=== PATIENT | female | born 1995 | race Caucasian/White ===

== ENCOUNTER → 2018-05-08 | Outpatient (CLI) | payer OTHER ==
[~2018-05-08] MED LIST: NORG1TAB97 PO; PREN-127 PO
[2018-05-08 10:00] LABS: PLATELET COUNT, AUTOMATED 269 K/uL (150-450)
== END ==
LOC: LAB 08:02
PROVIDERS: ATTEND Student in an Organized Health Care Education/Training Program
DX: Z34.01 Encounter for supervision of normal first pregnancy, first trimester (principal)
CPT/HCPCS: 36415; 81001; 85025; 86592; 86703; 86762; 86850; 86900; 86901; 87088; 87340

== ENCOUNTER → 2018-06-08 | Outpatient (CLI) | payer OTHER ==
[~2018-06-08] MED LIST changes: +FLU60SYR36 IM
== END ==
LOC: LAB 08:15
PROVIDERS: ATTEND Student in an Organized Health Care Education/Training Program
DX: Z34.91 Encounter for supervision of normal pregnancy, unspecified, first trimester (principal)
CPT/HCPCS: 87491; 87591

== ENCOUNTER → 2018-08-06 | Outpatient (CLI) | payer OTHER | LOC: LAB 10:16 | PROVIDERS: ATTEND Obstetrics & Gynecology | DX: O26.812 Pregnancy related exhaustion and fatigue, second trimester (principal) | CPT/HCPCS: 36415; 84443; 85027 ==

== ENCOUNTER → 2018-08-06 | Outpatient (CLI) | payer OTHER ==
--- NOTE | 2018-08-06 13:48 | RADIOLOGY IMAGING REPORT ---
FACILITY: [facility] PATIENT NAME: Ginna Portillo : 1995 MR: [id number] V: [id number] EXAM DATE: ORDERING PHYSICIAN: KOMAL SANCHEZ TECHNOLOGIST: [facility] Patient: Ginna Portillo : 1995 Visit/Account:[id number] Date of Sevice: 08/06/2018 EXAMINATION: Ultrasound transabdominal OB > 14 weeks with anatomic evaluation HISTORY: Anatomic survey COMPARISON: None. TECHNIQUE: Transabdominal imaging was performed for assessment of the fetus and maternal pelvic structures. T ransvaginal imaging was not performed. FINDINGS: Placenta: Anterior without previa. Uterus: Gravid, otherwise normal Cervix: Long and closed. Maternal Ovaries: Not visualized. Maternal and other adnexa findings: Not evaluated Intrauterine gestations: One. presentation: Cephalic heart rate: Normal and regular at 134 bpm Amniotic fluid index: 17.45 cm Largest amniotic fluid pocket: 5.24 cm Gestational Parameters: BPD: 4.56 cm 19 weeks/ six days, 35% HC: 17.71 cm 20 weeks/ two days, 44% AC: 14.48 cm 19 weeks/ six days, 33% FL: 3.27 cm 20 weeks/ two days, 45% Average ultrasound age (AUA): 20 weeks/one days, KISHA 12/23/2018 Estimated gestational age by KISHA: 20 weeks/one days, KISHA 12/23/2018 Estimated weight (EFW): 326 grams +/- 48 grams EFW for KISHA: 38 percentile Anatomic Survey: Intracranial structures, 4-chamber heart, stomach, kidneys, urinary bladder, spine, 3-vessel cord and cord insertion are unremarkable. Two upper and two lower extremities visualized. Cardiac ventricula r outflow tracts, palate and lips are unremarkable in appearance. IMPRESSION: Single viable fetus in cephalic presentation with an estimated gestational age by measur ements of 20 weeks and one day. Estimated gestational age by LMP is also 20 weeks and one day. Report Dictated By: Alyssa Nolan MD at 08/06/2018 1:40 PM Report E-Signed By: Alyssa Nolan MD at 08/06/2018 1:43 PM WSN:[id number]
== END ==
LOC: US 08:48
PROVIDERS: ATTEND Obstetrics & Gynecology
DX: Z02.9 Encounter for administrative examinations, unspecified (principal)

== ENCOUNTER → 2018-09-28 | Outpatient (CLI) | payer OTHER ==
[~2018-09-28] MED LIST changes: +DIPH0.5S2 IM
[2018-09-28 11:33] LABS: PLATELET COUNT, AUTOMATED 227 K/uL (150-450)
== END ==
LOC: LAB 08:19
PROVIDERS: ATTEND Student in an Organized Health Care Education/Training Program
DX: Z34.92 Encounter for supervision of normal pregnancy, unspecified, second trimester (principal)
CPT/HCPCS: 36415; 82950; 85025

== ENCOUNTER → 2018-11-26 | Outpatient (CLI) | payer OTHER | LOC: LAB 08:12 | PROVIDERS: ATTEND Student in an Organized Health Care Education/Training Program | DX: Z36.85 Encounter for antenatal screening for Streptococcus B (principal) | CPT/HCPCS: 87081 ==

== ENCOUNTER 2018-12-24 17:44 | Inpatient (IN) | payer OTHER ==
[~2018-12-24] VITALS: Ht 165.1 cm; Wt 97.5 kg
[2018-12-24] MEDS ORDERED: FAMOTIDINE(*) 20MG/50ML PREMIX 50 ML IVPB PRN (17:51)
[2018-12-24] MEDS ORDERED: TERBUTALINE SULF 1 MG/ML VIAL IVP PRN (17:55)
[2018-12-24] MEDS ORDERED: FLUSH 10 ML SYR IVP PRN (17:55)
[2018-12-24] MEDS ORDERED: DINOPROSTONE 10 MG INSERT PV ONE (17:55)
[2018-12-24] MEDS ORDERED: LIDOCAINE/SOD BICARB 8.4% SYR SC PRN (17:55)
[2018-12-24] MEDS ORDERED: METOCLOPRAMIDE 10 MG/2 ML SDV IVP PRN (17:55)
[2018-12-24] MEDS ORDERED: ZOLPIDEM TARTRATE 5 MG TAB PO PRN (17:55)
[2018-12-24] MEDS ORDERED: LIDOCAINE 1% LOCAL 300 MG/30ML INJ PRN (17:55)
[2018-12-24] MEDS ORDERED: fentaNYL CITR 100 MCG/2 ML AMP IVP PRN (17:55)
[2018-12-24 18:00] VITALS: BP 132/79; Ht 165.1 cm; Wt 97.5 kg
[2018-12-24 18:29] LABS: PLATELET COUNT, AUTOMATED 229 K/uL (150-450)
--- NOTE | 2018-12-24 18:58 | Anesthesia OB Pre-Anes Eval ---
History of Present Illness Anesthesia Start Date: Dec 24, 2018 Anesthesia Start Time: 18:47 OB Anesthesia Diagnosis: induction - medical, other (Post KISHA) Complications: none known : 1 Para: 0 Vital Signs: Epidural anesthesia risks, complications and benefits explained to patient's satisfaction for labor and vaginal delivery and/or section., Signs of infection and post dural puncture DIALLO teaching done. Hematology Test 12/24/18 18:20 White Blood Count 9.9 k/uL (4.5-11.0) Red Blood Count 4.51 M/uL (4.17-5.56) Hemoglobin 14.5 g/dL (12.0-16.0) Hematocrit 42.0 % (34.0-47.0) Mean Corpuscular Volume 93.1 fL (80.0-96.0) Mean Corpuscular Hemoglobin 32.1 pg (26.0-33.0) Mean Corpuscular Hemoglobin Concent 34.5 g/dL (32.0-36.0) Red Cell Distribution Width 14.9 % (11.5-14.5) H Platelet Count 229 K/uL (150-450) Mean Platelet Volume 9.2 fL (7.2-11.1) Neutrophils (%) (Auto) 71.4 % (39.4-72.5) Lymphocytes (%) (Auto) 20.4 % (17.6-49.6) Monocytes (%) (Auto) 7.4 % (4.1-12.4) Eosinophils (%) (Auto) 0.4 % (0.4-6.7) Basophils (%) (Auto) 0.4 % (0.3-1.4) Nucleated RBC Relative Count (auto) 0.1 /100WBC Neutrophils # (Auto) 7.1 K/uL (2.0-7.4) Lymphocytes # (Auto) 2.0 K/uL (1.3-3.6) Monocytes # (Auto) 0.7 K/uL (0.3-1.0) Eosinophils # (Auto) 0.0 K/uL (0.0-0.5) Basophils # (Auto) 0.0 K/uL (0.0-0.1) Nucleated RBC Absolute Count (auto) 0.01 K/uL Pain Ratin Heart Tones: 132 Result Diagram: 12/24/18 1820 Weight (Pounds): 155 Past Medical History Surgical History: cholecystectomy, other (wisdom teeth, rt, wrist reconstruction) Previous Anesthesia: general Attended Childbirth Classes?: No Hx Anesthesia Reactions: No Current Medications: pitocin, other (cervidil) Home Meds Reported Medications Vits W-Ca,Fe,Fa(<1MG) ( VITAMINS) 1 Each Tablet, 1 EACH PO DAILY, TAB 05/08/18 Allergies: Coded Allergies: No Known Drug Allergies (Unverified , 04/01/16) Anesthesia OB ROS Neurological: No migraines/headaches, No seizures, No neuropathy, No other Eyes ROS: other (glasses) ENT: Denies Tooth caps, Denies Loose teeth, Denies Chipped teeth, Denies Dentures, Denies Bridges, Denies Retainers, Denies Veneers, Denies Implants, Denies Tongue ring, Denies Other Pulmonary: No asthma, No smoker (pks/day/yrs), No other Airway Class: ll Cardiovascular ROS: No edema, No arrhythmia, No other GI ROS: other (regular, then after epidural clear liquids) ROS: No Herpes, No STD(s), No Liver Disease, No Renal Disease, No Other Endocrine ROS: No diabetes, No gestational diabetes, No thyroid disorder, No other Musculoskeletal ROS: No low back pain, No low back injury, No scoliosis, No other ASA Classification: 2 Assessment and Plan Anesthesia Plan: CSE Assessment: Calm and attentive, with patient for consent counseling, teaching and questions. Questions answered. MARITZA ONEILL CRNA Dec 24, 2018 18:58
[2018-12-25] MEDS ORDERED: OXYTOCIN 30 UNIT/NS 500 ML 500 ML IV PRN (07:00)
[2018-12-25] MEDS ORDERED: LR(*) 1000 ML BAG 1,000 ML ONE (08:21)
--- NOTE | 2018-12-25 08:31 | History & Physical ---
History of Present Illness Age of Patient: 23 : 1 Para or TPAL: 0 EDC per LMP: Dec 23, 2018 EDC per U/S: Dec 23, 2018 Estimated Gestational Age: 40.2 Chief Complaint Pt here for a postdates induction at 40 2/7. Had a good night and was able to sleep well. She had breakfast this am. +FM, no LOF or VB. Denies DIALLO, vision changes, and RUQ and epigastric pain. She has been mak regularly with some discomfort, but reports that are tolerable. She is ready to start Pitocin this am. History Patient's Blood Type: O Positive Rubella Status: Immune Group B Strep Screen: Negative Allergies: Coded Allergies: No Known Drug Allergies (Unverified , 04/01/16) Social History: Denies Tobacco, etoh and drugs including marijuana Family History: FH: breast cancer MATERNAL AUNT FH: cancer PGF (LUNG ) PATERNAL AUNT (COLON ) FH: thyroid condition MOTHER Med Rec Home Meds Reported Medications Vits W-Ca,Fe,Fa(<1MG) ( VITAMINS) 1 Each Tablet, 1 EACH PO DAILY, TAB 05/08/18 Review of Systems Constitutional: No Fever Cardiovascular: No Chest Pain Respiratory: No Shortness of Breath Gastrointestinal: No Nausea, No Vomiting; Abdominal Pain (mild with uterine contractions) Psychiatric: No Depression, No Anxiety Exam General Exam Vital Signs Vital Signs Date Time Temp Pulse Resp B/P (MAP) Pulse Ox O2 Delivery O2 Flow Rate FiO2 12/24/18 18:00 97.7 95 18 132/79 (96) General Apperance: Alert/Awake/No Acute Distress Neuro: No Gross deficits Eyes: Normal Extraocular Movement & Vison ENT: Normal Cardiovascular: Regular Rate and Rhythm Respiratory: No Respiratory Distress Abdomen: Gravid - Non-Tender, RUQ Non-Tender : Normal Musculoskeletal: No Weakness/Pain Extremities: No Cyanosis,Clubbing or Edema Integumentary: Skin Intact without Lesions or Rash Psychological: Alert & Oriented X3, Appropriate Mood & Affect Vaginal Discharge/Fluid?: Bloody Show Cervical Dialation: 3 Cervical Effacement (%): 60 Cervical Consistency: Moderate Cervical Position: Mid Station: -1 Presentation: Vertex Uterine Contractions(Q min): 5 Uterine Contraction Strength: Moderate Fetus Feeling Movement?: Yes Estimated Weight(grams): 3700 Heart Tones: 130 Heart Tone Variabilty: Moderate FHT Accelerations: Present, 15X15 FHT Category: I Medical Decision Making Data Points Result Diagram: 12/24/18 1820 Assessment and Plan MARKETING PLANNER Plan: Routine Labor/Induct Care Problems: (1) Encounter for induction of labor Onset Date: ~ 12/24/2018 Status: Acute Assessment & Plan: LH is a 23y.o. at 40w2d wks with an Estimated Date of Delivery: 12/23/18 dated by LMP and first trimester US Labor state: Early labor with good cervical change overnight with Cervidil. Disc ussed R/B/A of continued induction with Pitocin. Pt and agreeable to plan. Encourage upright positioning and ambulating for labor progression and descent.Will plan to discuss AROM in about 2 hours. well-being: Category I FHT: Continuous monitoring for Pitocin induction. Maternal well-being: VSS, normotensive and afebrile, membranes presumed intact PNL: GBS neg, Type/Rh O+, rubella immune Pain Management: Plan for unmedicated, but not opposed to epidural or pain medication Feed: Breast c/b: * Chiari Malformation Type 1: sees Neurologist in [place] with letter in Chart from Neurologist about Delivery -No contraindications for Regional/General Anesthesia Anticipate Labor progression, re-evaluate in 2-3 hours or prn FABIOLA SEGURA CNM Dec 25, 2018 08:31
[2018-12-25] MEDS ORDERED: LR(*) 1000 ML BAG 1,000 ML IV PRN (09:19)
--- NOTE | 2018-12-25 12:35 | Labor Progress Note ---
Labor Subjective Progress Notes Subjective Pt is feeling ready for things to progress. She was feeling more uncomfortable with back pain, so she took a bath and was able to sleep and just got out. Feeling Movement?: Yes Vaginal Discharge/Fluid: Bloody Show, Clear Fluid, Moderate Amount Labor Pain: Mild Neurological: No Headache Eyes: No Visual Disturbances Labor Objective Vital Signs Vital Signs Date Time Temp Pulse Resp B/P (MAP) Pulse Ox O2 Delivery O2 Flow Rate FiO2 12/24/18 18:00 97.7 95 18 132/79 (96) Vaginal Discharge/Fluid?: Bloody Show, Clear Fluid, Moderate Amount Cervical Dialation: 4 Cervical Effacement (%): 60 Cervical Consistency: Moderate Cervical Position: Mid Station: 0 Presentation: Vertex Uterine Contractions(Q min): 4 Uterine Contraction Strength: Strong UC Resting Tone: Soft Fetus Estimated Weight(grams): 3700 Heart Tones: 130 Heart Tone Variabilty: Moderate FHT Accelerations: 15X15 FHT Decelerations: None FHT Category: I General Exam General Appearance: Alert/Awake/No Acute Distress ENT: Normal Neck: No Masses Cardiovascular: Normal Rhythm & Peripheral Pulses Extremities: No Cyanosis,Clubbing or Edema Integumentary: Skin Intact without Lesions or Rash Psychological: Alert & Oriented X3, Appropriate Mood & Affect Other Result Diagram: 12/24/18 1820 Assessment and Plan Hospital Day: 1 TELEVISION PRODUCTION CLERK Assessment: Stable TELEVISION PRODUCTION CLERK Plan: Routine Labor/Induct Care Problems: (1) Encounter for induction of labor Onset Date: ~ 12/24/2018 Status: Acute Assessment & Plan: LH is a 23y.o. at 40w2d wks with an Estimated Date of Delivery: 12/23/18 dated by LMP and first trimester US Labor state: Early labor, approaching active labor . Discussed R/B/A of continued induction with AROM. Pt and agreeable to plan. Encourage upright positioning and ambulating for labor progression and descent.Will plan to continue to increase Pitocin every 20 minutes depending on frequency of contractions and patient coping pattern. well-being: Category I FHT: Continuous monitoring for Pitocin induction. Maternal well-being: VSS, normotensive and afebrile, AROM for clear moderate fluid PNL: GBS neg, Type/Rh O+, rubella immune Pain Management: Coping well, plan for unmedicated, but not opposed to epidural or pain medication Feed: Breast c/b: * Chiari Malformation Type 1: sees Neurologist in [place] with letter in Chart from Neurologist about Delivery -No contraindications for Regional/General Anesthesia Anticipate Labor progression, re-evaluate in 2-3 hours or prn FABIOLA SEGURA CNM Dec 25, 2018 12:35
[2018-12-25] MEDS ORDERED: LIDO/EPI 2% MPF 1:200,000 20ML EPI PRN (14:05)
[2018-12-25] MEDS ORDERED: fentaNYL CITR 100 MCG/2 ML AMP IT PRN (14:05)
[2018-12-25] MEDS ORDERED: LIDOCAINE/PF 2% 200MG/10ML AMP 200 MG/10 ML AMPUL EPI PRN (14:05)
[2018-12-25] MEDS ORDERED: FENTANYL/ROPIVACAINE 100 ML BAG EPI PRN (14:05)
[2018-12-25] MEDS ORDERED: BUPIVACAINE 0.5% INJ 30ML VIAL EPI PRN (14:05)
[2018-12-25] MEDS ORDERED: BUPIVACAINE 0.25% MPF INJ EPI PRN (14:05)
[2018-12-25] MEDS ORDERED: ePHEDrine 25 MG/5 ML DISP.SYR IVP ONE (14:17)
--- NOTE | 2018-12-25 15:18 | Labor Progress Note ---
Labor Subjective Progress Notes Subjective Pt was started to feel very tired. She tried the tub and that helped the pain, but ready for the epidural. She feels she is coping well, but too tired to continue unmedicated. Feeling Movement?: Yes Vaginal Discharge/Fluid: Bloody Show, Clear Fluid, Mucous, Moderate Amount Labor Pain: Comfortable Neurological: No Headache Eyes: No Visual Disturbances Labor Objective Vital Signs Vital Signs Date Time Temp Pulse Resp B/P (MAP) Pulse Ox O2 Delivery O2 Flow Rate FiO2 12/24/18 18:00 97.7 95 18 132/79 (96) Vaginal Discharge/Fluid?: Bloody Show, Clear Fluid, Mucous, Moderate Amount Cervical Dialation: 6.5 Cervical Effacement (%): 90 Cervical Consistency: Soft Cervical Position: Anterior Station: 0 Presentation: Vertex Uterine Contractions(Q min): 4 Uterine Contraction Strength: Strong Fetus Estimated Weight(grams): 3700 Heart Tones: 120 Heart Tone Variabilty: Minimal (a times- IVF bolus given), Moderate FHT Accelerations: Present, 15X15 FHT Decelerations: Early, Variable (occassional ), Prolonged (after epidural placement) FHT Category: II General Exam General Appearance: Alert/Awake/No Acute Distress ENT: Normal Neck: No Masses Cardiovascular: Normal Rhythm & Peripheral Pulses Respiratory: No Respiratory Distress Abdomen: Soft, Non-Tender, Non-Distended Musculoskeletal: No Weakness/Pain Extremities: No Cyanosis,Clubbing or Edema Integumentary: Skin Intact without Lesions or Rash Psychological: Alert & Oriented X3, Appropriate Mood & Affect Other Result Diagram: 12/24/18 1820 Assessment and Plan AMPHIBIAN CREWMEMBER Assessment: Stable AMPHIBIAN CREWMEMBER Plan: Routine Labor/Induct Care Problems: (1) Encounter for induction of labor Onset Date: ~ 12/24/2018 Status: Acute Assessment & Plan: LH is a 23y.o. at 40w2d wks with an Estimated Date of Delivery: 12/23/18 dated by LMP and first trimester US Labor state: Active labor, Pitocin stopped after prolonged deceleration. Will plan to restart and then continue to increase Pitocin every 20 minutes depending on frequency of contractions. well-being: Category II FHT: repetitive early decelerations; one prolonged deceleration after epidural, but recovered with position change, NRB, IVF bolus and one dose of ephedrine. Continuous monitoring for Pitocin induction. Maternal well-being: VSS, normotensive and afebrile, AROM at 12:15 for clear moderate fluid, continued leaking PNL: GBS neg, Type/Rh O+, rubella immune Pain Management: Coping well, but very tried so requesting an epidural. After epidural completely comfortable Feed: Breast c/b: * Chiari Malformation Type 1: sees Neurologist in [place] with letter in Chart from Neurologist about Delivery -No contraindications for Regional/General Anesthesia Anticipate Labor progression, re-evaluate in 2-3 hours or prn FABIOLA SEGURA CNM Dec 25, 2018 15:18
--- NOTE | 2018-12-25 16:15 | Procedure Note ---
Anesthetic Placement Note Anesthesia Plan: CSE Anesthesia Technique: Patient Sitting Anesthesia Prep: Chlorhexidine (Sterile procedure, room traffic stopped, STATION TENDER hand scrub, time out 141, mask and sterile gloves. Hats to Pt and STATION TENDER.) Interspace: L 3-4 (midline) Local Anesthetic: 1% Lidocaine, 25 Gauge Needle Amount Local - cc's: 2 Anesthesia Needle: 17g Touhy/Schliff Loss of Resistance: Normal Saline Depth of LESLIE (cm): 6.1 Epidural Needle Placement: No CSF, No Blood, No Parasthesia Intrathecal Needle: 27 Gauge Pencan Cerebral Spinal Fluid: No Catheter Insertion (cm): 3.5 Catheter Type: Myers - Spring Wound Epidural Dressing: Tegaderm, Tape (left abdomen) Anesthesia Tray: Lot Number ([id number]), Expiration Date (2019-11-16) Anesthesia Medications: Intrathecal Dose: mcg Fentanyl (1430), mg Marcaine MPF (0.25% / 1.5 ml), Time (1430) Epidural Test Dose: 1.5 Lido/Epi (1:200,000), Dose - mL (3), Time (1431), Negative Epidural Infusion: 0.2% Ropivicaine, With Fentanyl 2mcg/ml, Start Time: (1502) Epidural Pump Setting: Bolus Dose - mL (5), Lockout - Minutes (20), Maintenance Rate - mL/hr (7), Maximum per Hour - mL (22) Complications: Deceleration of FHT with stable BP. Pitocin off, fluid bolus and O2 initiated, 5 mg ephedrrine for BP 105/58. Bijal EDGE and Dr Conley present. Return to stable. Comment: STATION TENDER in room anesthesia start 141 MARITZA ONEILL CRNA Dec 25, 2018 16:15
--- NOTE | 2018-12-25 17:26 | Labor Progress Note ---
Labor Subjective Progress Notes Subjective Pt slept for almost 2 hours after the epidural and is feel much more rested. She feels rectal pressure. Feeling Movement?: Yes Vaginal Discharge/Fluid: Bloody Show, Clear Fluid Labor Pain: Comfortable Neurological: No Headache Eyes: No Visual Disturbances Labor Objective Vital Signs Vital Signs Date Time Temp Pulse Resp B/P (MAP) Pulse Ox O2 Delivery O2 Flow Rate FiO2 12/24/18 18:00 97.7 95 18 132/79 (96) Vaginal Discharge/Fluid?: Bloody Show, Clear Fluid Cervical Dialation: 9 Cervical Effacement (%): 100 Cervical Consistency: Soft Cervical Position: Anterior Station: +1 Presentation: Vertex Uterine Contractions(Q min): 5 Uterine Contraction Strength: Strong UC Resting Tone: Soft Fetus Estimated Weight(grams): 3700 Heart Tones: 130 Heart Tone Variabilty: Moderate FHT Accelerations: 15X15 FHT Decelerations: None FHT Category: I General Exam General Appearance: Alert/Awake/No Acute Distress ENT: Normal Neck: No Masses Cardiovascular: Normal Rhythm & Peripheral Pulses Respiratory: No Respiratory Distress Abdomen: Gravid - Non-Tender, Outlet Adeq for Delivery, Fundus - Non-Tender : Normal Musculoskeletal: No Weakness/Pain Extremities: No Cyanosis,Clubbing or Edema Integumentary: Skin Intact without Lesions or Rash Psychological: Alert & Oriented X3, Appropriate Mood & Affect Other Result Diagram: 12/24/18 1820 Assessment and Plan PRODUCTION EDITOR Assessment: Stable PRODUCTION EDITOR Plan: Routine Labor/Induct Care Problems: (1) Encounter for induction of labor Onset Date: ~ 12/24/2018 Status: Acute Assessment & Plan: LH is a 23y.o. at 40w2d wks with an Estimated Date of Delivery: 12/23/18 dated by LMP and first trimester US Labor state: Transition stage labor with excellent cervical change since last check. Continue extreme lateral positioning with peanut ball for descent. Titrate Pitocin for contraction pattern well-being: Category I FHT: Continuous monitoring for Pitocin induction. Maternal resuscitation PRN Maternal well-being: VSS, normotensive and afebrile, AROM at 12:15 for clear moderate fluid PNL: GBS neg, Type/Rh O+, rubella immune Pain Management: comfortable with epidural Feed: Breast c/b: * Chiari Malformation Type 1: sees Neurologist in [place] with letter in Chart from Neurologist about Delivery -No contraindications for Regional/General Anesthesia Anticipate , re-evaluate in 30 minutes to 1 hour or prn FABIOLA SEGURA CNM Dec 25, 2018 17:26
[2018-12-25] MEDS ORDERED: MAGNESIUM HYDROXIDE* 30ML UDCP PO PRN (21:35)
[2018-12-25] MEDS ORDERED: GLYCERIN/WITCH HAZEL LEAF 1 PK TOP PRN (21:35)
[2018-12-25] MEDS ORDERED: APAP/HYDROCODONE 325/5 TAB PO PRN (21:35)
[2018-12-25] MEDS ORDERED: HYDROCORTISONE 2.5% CR 30GM TB PR PRN (21:35)
[2018-12-25] MEDS ORDERED: ACETAMINOPHEN 325 MG TAB PO PRN (21:35)
[2018-12-25] MEDS ORDERED: LANOLIN OINT 7 GM TUBE TP PRN (21:35)
[2018-12-25] MEDS ORDERED: BENZOCAINE 20% 60 ML BTL TP PRN (21:35)
--- NOTE | 2018-12-25 21:35 | OB Delivery Note ---
Delivery Note Vaginal Delivery Type: Spont. Vaginal Delivery Delivery Date: Dec 25, 2018 Delivery Time: 21:01 Estimated Gestational Age(wks): 40.2 Delivery Anesthesia: Epidural Sex: Male Infant Weight (gms): [address] [place] Apgars: 1 Minute (8), 5 Minute (8) Estimated Blood Loss: 150 Delivery Complications: Nuchal Cord (loose and delivered through) Notes: Pt was admitted to the family care unit on 12/24/18 at 1730 for an post dates IOL with Pitocin and AROM. Cervical exam on admission was 1/50/-2. She had AROM on 12/25/18 at 1215, for clear moderate fluid. Pt was GBS neg. FHR CAT I primarily throughout first stage. Pt utilized continuous lumbar epidural primarily for pain management. Pt was completely dilated on 12/25/18 at 2006 after 3 hours at 9cm. FHR CAT II for occasional late decelerations, but good variability.Dr Salmon was consulted and available if needed in house. At 2100 pt had a NSVB of live male infant APGARS 8/8 weighing 6bs 6oz, 2890g. The head delivered spontaneously in the direct OA position and restituted LEVI with a loose nuchal cord with which baby was able to somersault through. The anterior shoulder was delivered a traumatically and the posterior shoulder followed. Body delivered easily. Face was wiped with nose and bulb suction and then placed on the maternal abdomen. The infant was dried and stimulated and noted to spontaneous movement of all 4 extremities and good color. Cry was minimal so the infant was stimulated by the nursing staff and Cord was clamped X 2 by CNM after pulsations ceased and cut by patient's spouse. Mother was in SF position. Cord blood was obtained and passed to the table. Cord gases were attempted at Dr. Conley's request, but not able to collect. At 2105 the placenta and membranes delivered spontaneous and intact with a 3 vessel cord after gentle downward traction and maternal push. 30 units of Pitocin was placed in 500cc IV to firm the uterus and started immediately after placenta delivery. Upon inspection of the perineum it was found to be intact with a small vaginal abrasion. Hemostasis observed. No repair necessary. EBL 150 with fundus firm with minimal bleeding. Mom and baby were left in stable condition. "I personally examined the patient and there are no unintended foreign objects in the vagina, and all sponge, lap and needle counts were correct. Fabiola Merida CNM was present throughout the entire delivery and Dr David Conley was my OB backup. Gericare Aide Teacher in Attendence: FABIOLA Guzman CNM Dec 25, 2018 21:35
--- NOTE | 2018-12-25 21:44 | Anesthesia Progress Note ---
Progress/Maintenance Anesthesia Note Date: Dec 25, 2018 Anesthesia Note Time: 20:00 Pain Intensity: 1 Pump: On Pump Rate (ML/HR): 7 Sensory Level: T7-8 Motor Level: Bending Knees-Bilateral Dilatation: 9 Position: Semi-Fowlers Report Received From: Other (Lucrecia Dominguez CRNA) Report Time: 19:45 Care Assumed By: Other (Brenton Moreno CRNA) Time Care Assumed: 19:45 Assessment and Plan Anesthesia Stop Day: Dec 25, 2018 Anesthesia Stop Time: 21:01 Epidural Catheter Removal: Yes, Removed by: (RN (see RN notes)) Removal Date: Dec 25, 2018 BRENTON MORENO CRNA Dec 25, 2018 21:44
[2018-12-25 22:30] VITALS: BP 132/82
[2018-12-25 23:00] VITALS: BP 132/82
[2018-12-25] MEDS: IBUPROFEN 800 MG TAB PO SCH (23:23)
[2018-12-25] MEDS: DOCUSATE CALCIUM 240 MG CAP PO SCH (23:23)
[2018-12-26] MEDS ORDERED: LR(*) 1000 ML BAG 1,000 ML ONE (00:10)
[2018-12-26 02:10] VITALS: BP 136/71
[2018-12-26] MEDS: IBUPROFEN 800 MG TAB PO SCH ×3 (06:37→22:58)
[2018-12-26 07:40] VITALS: BP 128/72
[2018-12-26] MEDS: DOCUSATE CALCIUM 240 MG CAP PO SCH ×2 (09:52→21:02)
--- NOTE | 2018-12-26 11:32 | OB/GYN Progress Note ---
OB Subjective Progress Notes Subjective Pt doing well. Pain well controlled. Lochia light. . Voiding on own. +BM today. No complaints. GI: POS Flatus, POS Bowel Movement; NEG Nausea, NEG Vomiting : Vaginal Bleeding, Scant Pain: Mild Neurological: No Headache OB Objective Physical Exam Vital Signs Date Time Temp Pulse Resp B/P (MAP) Pulse Ox O2 Delivery O2 Flow Rate FiO2 12/26/18 07:40 97.6 88 16 128/72 (90) 96 Room Air Intake and Output 12/26/18 07:03 Intake Total 3500 ml Output Total 1600 ml Balance 1900 ml Intake IV Total 3500 ml Output Urine Total 1600 ml # Voids 1 General Appearance: Alert/Awake/No Acute Distress Neurological: No Gross deficits Eyes: Normal Extraocular Movement & Vison ENT: Normal Neck: No Masses Cardiovascular: Normal Rhythm & Peripheral Pulses Respiratory: No Respiratory Distress Abdomen: Soft, Non-Tender, Non-Distended, Fundus Firm : Normal Musculoskeletal: No Weakness/Pain Extremities: No Cyanosis,Clubbing or Edema Integumentary: Skin Intact without Lesions or Rash Psychological: Alert & Oriented X3, Appropriate Mood & Affect Result Diagram: 12/24/18 1820 Assessment and Plan UNDERWRITING DIRECTOR Plan: Routine Post- Care, Discharge Home Tomorrow Problems: (1) Encounter for induction of labor Onset Date: ~ 12/24/2018 Status: Resolved (2) (spontaneous vaginal delivery) GREGORY YORK DO Dec 26, 2018 11:32
[2018-12-26 11:40] VITALS: BP 131/78
[2018-12-26 14:50] VITALS: BP 138/83
[2018-12-26 20:20] VITALS: BP 131/76
[2018-12-26 22:56] VITALS: BP 134/76
[2018-12-27 02:21] VITALS: BP 113/67
[2018-12-27 07:03] VITALS: BP 135/66
[2018-12-27] MEDS: IBUPROFEN 800 MG TAB PO SCH (07:05)
[2018-12-27] MEDS: DOCUSATE CALCIUM 240 MG CAP PO SCH (08:33)
== END 2018-12-27 12:45 | disposition home or self-care (01) | DRG 805 ==
LOC: OB 17:44 → OBSVTOIN 17:44
PROVIDERS: ADMIT Obstetrics & Gynecology; ATTEND Obstetrics & Gynecology
PROC: 10E0XZZ Delivery of Products of Conception, External Approach (ICD-10-PCS; principal; 2018-12-25)
PROC: 10907ZC Drainage of Amniotic Fluid, Therapeutic from Products of Conception, Via Natural or Artificial Opening (ICD-10-PCS; 2018-12-25)
PROC: 3E033VJ Introduction of Other Hormone into Peripheral Vein, Percutaneous Approach (ICD-10-PCS; 2018-12-25)
DX: O99.354 Diseases of the nervous system complicating childbirth (principal); G93.5 Compression of brain; Z37.0 Single live birth; O76 Abnormality in fetal heart rate and rhythm complicating labor and delivery; O69.81X0 Labor and delivery complicated by cord around neck, without compression, not applicable or unspecified; Z3A.40 40 weeks gestation of pregnancy
CPT/HCPCS: 85025; 86850; 86900; 86901; J2590; J3010; J7120; S0020